=== PATIENT | male | born 1930 | race Caucasian/White ===

== ENCOUNTER 2018-05-02 16:23 | Emergency (ER) | payer MEDICARE ==
[~2018-05-02] VITALS: Ht 162.6 cm; Wt 61.2 kg
--- NOTE | 2018-05-02 16:41 | ED Neurological Problem ---
General Stated Complaint: POSSIBLE STROKE;SLURRED WORDS Source: patient, family (grandson caregiver) Exam Limitations: no limitations History of Present Illness Date Seen by Provider: May 02, 2018 Time Seen by Provider: 16:27 Initial Comments The patient presents to ER by private conveyance with his grandson who is his caregiver with last known well time of 1600 and his grandson suspecting that he was having a stroke. He said right around 4:00 the patient started just staring at him very finally and would not respond for some time but then when he did speak it was rather slurred but he couldn't make out what he was saying. He thought maybe the right side of his face was a little bit drooped. He did not note any weakness in one side or the other of his lower extremities or arms but he said that the patient could no longer stance area to pick him up and carry him out. He got a skin tear on his left elbow as the grandson was carrying him out. The grandson moved here recently 2 months ago with the patient to take care of him. The patient does have dementia at baseline. Grandson is not sure of his medical diagnoses are medicines but is going to retrieve them and bring them appear. He said as he was driving up. The patient stated that he did not want to go to the hospital. 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 He denies any recent illness, fevers, chills, cough, dysuria, diarrhea or constipation. Patient has not had any falls recently and usually gets around using a walker independently. He says he is usually rather verbose and can make his own wishes known. The patient is on aspirin and has a history of prostatism and hypertension. After discovering the hematoma we discussed recent falls the patient says he has fallen multiple times but is not still a very good historian although is much better now about talking. The grandson rumors that he had a fall rolled out of bed and got a black eye on the right eye that still has some residual bruising about for 5 weeks ago and then also had a fall about 2-3 weeks ago landing on his left hip which causes a large bruise but has since resolved. He also noticed today a new abrasion on the patient's left knee that would indicate a new fall but it was unwitnessed and the grandson is not sure when showed up but it looks fresh. Allergies and Home Medications Allergies Coded Allergies: No Allergy Information Available (Unverified , 05/02/18) Nonverbal and grandson caregiver does not know. Home Medications Amlodipine Besylate 5 Mg Tablet, 5 MG PO DAILY, (Reported) Lisinopril 10 Mg Tablet, 10 MG PO DAILY, (Reported) Patient Home Medication List Home Medication List Reviewed: Yes Review of Systems Review of Systems Constitutional: No chills, No fever, No malaise Eyes: Denies Blindness, Denies Drainage Ears, Nose, Mouth, Throat: denies ear pain, denies nose pain Respiratory: No cough, No phlegm Cardiovascular: No chest pain, No edema Gastrointestinal: No abdominal pain, No constipation, No diarrhea Genitourinary: No discharge, No dysuria Musculoskeletal: No joint pain, No joint swelling Skin: see HPI; No dryness Past Sugpkae-Rukkib-Qkghvs Hx Patient Social History Alcohol Use: Denies Use Recreational Drug Use: No Smoking Status: Never a Smoker Recent Foreign Travel: No Contact w/Someone Who Travel: No Physical Exam Vital Signs Vital Signs - First Documented 05/02/18 16:30 Temp 99.0 Pulse 80 Resp 17 B/P (MAP) 126/60 (82) Pulse Ox 97 Capillary Refill : Height, Weight, BMI Height: '" Weight: lbs. oz. kg; BMI Method: General Appearance: no apparent distress, thin HEENT: PERRL/EOMI, normal ENT inspection, TMs normal, pharynx normal Neck: non-tender, full range of motion, supple, normal inspection Respiratory: chest non-tender, lungs clear, normal breath sounds, no respiratory distress, no accessory muscle use Cardiovascular: regular rate, rhythm, no edema, no murmur Peripheral Pulses: 2+ Dorsalis Pedis (R), 2+ Left Dors-Pedis (L), 2+ Radial Pulses (R), 2+ Radial Pulses (L) Gastrointestinal: normal bowel sounds (active), non tender, soft Extremities: non-tender, normal inspection, no pedal edema, no calf tenderness , normal capillary refill Neurologic/Psychiatric: alert, other (flat affect. Answers sparingly and for the nurse had some slurred speech but gives a few words answers at the time and they are clear to this provider.) Crainal Nerves: normal hearing, PERRL; No abnormal eye position; abnormal speech (slowed anita); No facial asymmetry, No facial droop, No facial paresthesias, No facial weakness, No gaze palsy Coordination/Gait: No normal finger to nose, No normal gait Motor/Sensory: no sensory deficit Skin: normal color, warm/dry, ecchymosis (various), other (2.5 cm superficial skin tear over the left lateral elbow) Stroke Onset of Symptoms Date of Onset of Symptoms: May 02, 2018 Time of Symptom Onset: 16:00 Onset of Symptoms: Yes Symptoms onset unknown: No NIH Stroke Scale Assessment Select: Initial Level of Consciousness: 0=Alert (0), Level of Consciousness- Questions: 0=Answers both month/age (0), LOC Commands: 0=Performs both tasks (0) , Gaze: Normal (0), Visual Rodríguez: 0=No visual loss (0), Facial Movement ( Facial Paresis): 0=Normal symmetrical mnt (0), Motor Function-Arms Right: 1= Drift (1), Motor Function-Arms Left: 2=Some effort/gravity (2), Motor Function- Legs Right: 0=No drift (0), Motor Function-Legs Left: 2=Some effort/gravity (2) , Limb Ataxia: 2=Present in two limbs (2), Sensory: 0=Normal:no loss (0), Best Language: 1=Mild to moderat aphasia (1), Dysarthria: 1=Mild to moderate loss (1) , Extinction & Inattention: 0=No abnormality (0), Total: 9 Stroke Thrombolytic Exclusion Age 18 or Over: Yes Acute intenal hemorrhage: No History of CVA: No Uncontrolled Coagulation Defec: No Intracranial Hemorrhage: No Severe Hypertension: No GI or Bleed: No Subarachnoid Hemorrhage: No Intracranial Neoplasm/Aneurysm: No Surgery or Trauma: No Puncture of Non-Compressible V: No Recent CPR: No Diabetic Hemorrhagic Retinopat: No Organ Biopsy: No Recent Obstetric Delivery: No Glucose: No (110) Significant Hepatic Dysfunctio: No NIH Stoke Scale >22: No Bacterial Endocarditis: No Pericarditis: No Improving Symptoms: Yes Platelets: No (264) TPA Contraindication: Yes IV - TPa Received IV - TPa Procedure Performed?: No Progress/Results/Core Measures Results/Orders Lab Results Laboratory Tests Test 05/02/18 16:39 05/02/18 16:51 05/02/18 17:25 Range/Units Glucometer 110 70-110 MG/DL White Blood Count 6.1 4.3-11.0 10^3/uL Red Blood Count 4.00 L 4.35-5.85 10^6/uL Hemoglobin 12.4 L 13.3-17.7 G/DL Hematocrit 36 L 40-54 % Mean Corpuscular Volume 91 80-99 FL Mean Corpuscular Hemoglobin 31 25-34 PG Mean Corpuscular Hemoglobin Concent 34 32-36 G/DL Red Cell Distribution Width 13.2 10.0-14.5 % Platelet Count 264 130-400 10^3/uL Mean Platelet Volume 8.9 7.4-10.4 FL Neutrophils (%) (Auto) 57 42-75 % Lymphocytes (%) (Auto) 29 12-44 % Monocytes (%) (Auto) 11 0-12 % Eosinophils (%) (Auto) 2 0-10 % Basophils (%) (Auto) 1 0-10 % Neutrophils # (Auto) 3.4 1.8-7.8 X 10^3 Lymphocytes # (Auto) 1.7 1.0-4.0 X 10^3 Monocytes # (Auto) 0.7 0.0-1.0 X 10^3 Eosinophils # (Auto) 0.1 0.0-0.3 10^3/uL Basophils # (Auto) 0.0 0.0-0.1 10^3/uL Prothrombin Time 13.6 12.2-14.7 SEC INR Comment 1.0 0.8-1.4 Activated Partial Thromboplast Time 31 24-35 SEC D-Dimer 1.07 H 0.00-0.49 UG/ML Sodium Level 138 135-145 MMOL/L Potassium Level 4.3 3.6-5.0 MMOL/L Chloride Level 100 98-107 MMOL/L Carbon Dioxide Level 23 21-32 MMOL/L Anion Gap 15 H 5-14 MMOL/L Blood Urea Nitrogen 21 H 7-18 MG/DL Creatinine 1.05 0.60-1.30 MG/DL Estimat Glomerular Filtration Rate > 60 BUN/Creatinine Ratio 20 Glucose Level 114 H 70-105 MG/DL Calcium Level 8.8 8.5-10.1 MG/DL Corrected Calcium 9.4 8.5-10.1 MG/DL Total Bilirubin 0.5 0.1-1.0 MG/DL Aspartate Amino Transf (AST/SGOT) 16 5-34 U/L Alanine Aminotransferase (ALT/SGPT) 15 0-55 U/L Alkaline Phosphatase 89 40-136 U/L Total Protein 6.2 L 6.4-8.2 GM/DL Albumin 3.3 3.2-4.5 GM/DL Urine Color YELLOW Urine Clarity CLEAR Urine pH 6.0 5-9 Urine Specific [place] 1.015 L 1.016-1.022 Urine Protein NEGATIVE NEGATIVE Urine Glucose (UA) NEGATIVE NEGATIVE Urine Ketones TRACE H NEGATIVE Urine Nitrite NEGATIVE NEGATIVE Urine Bilirubin NEGATIVE NEGATIVE Urine Urobilinogen 1.0 NORMAL MG/DL Urine Leukocyte Esterase NEGATIVE NEGATIVE Urine RBC (Auto) TRACE H NEGATIVE Urine RBC 2-5 H /HPF Urine WBC 0-2 /HPF Urine Squamous Epithelial Cells 0-2 /HPF Urine Crystals NONE /LPF Urine Bacteria TRACE /HPF Urine Casts PRESENT /LPF Urine Hyaline Casts 0-2 H /LPF Urine Mucus SMALL H /LPF Urine Culture Indicated NO My Orders Orders - DREW ALMEIDA Code/Resuscitation (05/02/18 16:38) Cbc With Automated Diff (05/02/18 16:38) Protime With Inr (05/02/18 16:38) Partial Thromboplastin Time (05/02/18 16:38) Comprehensive Metabolic Panel (05/02/18 16:38) Fibrin Degradation Products (05/02/18 16:38) Ua Culture If Indicated (05/02/18 16:38) Chest 1 View Ap/Pa Only (05/02/18 16:38) Catheter(Urinary) Insert & Ass 03,15 (05/02/18 16:38) Ekg Tracing (05/02/18 16:38) Nothing By Mouth (05/03/18 Breakfast) Accucheck Stat ONCE (05/02/18 16:38) Saline Lock/Iv-Start (05/02/18 16:38) Saline Lock/Iv-Start (05/02/18 16:38) Vital Signs Stroke Patient Q15M (05/02/18 16:38) Ct Head Wo-R/O Stroke (05/02/18 16:38) O2 (05/02/18 16:38) Intake & Output 06,14,22 (05/02/18 16:38) Monitor-Rhythm Ecg Trace Only (05/02/18 16:38) Dysphagia Screening Tool (05/02/18 16:38) Post Thrombolytic Adminstratio (05/02/18 16:38) Lipid Panel (05/03/18 06:00) Vital Signs/I&O 05/02/18 16:30 Temp 99.0 Pulse 80 Resp 17 B/P (MAP) 126/60 (82) Pulse Ox 97 Progress Progress Note #1: Time: 17:00 Progress Note The grandson reports that the symptoms were worse in the beginning and are getting better. When he first came in the patient would not talk to us now but now he is talking since the grandson left. Progress Note #2: Time: 18:15 Progress Note The patient is on multiple falls and would possibly account for this subacute subdural hematoma. I suspect now it's more likely that the subdural hematoma may have contributed to a seizure and a postictal period is what we were witnessing with his improving symptoms. Obviously he is not a candidate for TPA. We discuss with neurosurgery. Initial ECG Impression Date: May 02, 2018 Initial ECG Impression Time: 16:43 Initial ECG Rate: 84 Initial ECG Rhythm: Normal Sinus Initial ECG Intervals: Normal Initial ECG Impression: Normal, Nonspecific Changes Initial ECG Comparisson: No Previous ECG Available Comment There is some mild artifact but there is no apparent ST elevation or depression. Diagnostic Imaging Diagonstic Imaging: Xray Plain Films/CT/US/NM/MRI: chest (1v) Comments NAME: RACHEL HUSTON [facility] REC#: [id number] PT STATUS: REG ER : 1930 PHYSICIAN: DREW ALMEIDA MD ADMIT DATE: 05/02/18/ER FS Signed Date of Exam:05/02/18 CHEST 1 VIEW AP/PA ONLY Indication: CVA Portable chest 4:47 PM Heart size and pulmonary vascularity are normal. Lungs are clear. There are no effusions or pneumothoraces. Impression: No acute abnormalities in the chest Dictated by: Dictated on workstation # [id number] Dict: 05/02/181709 Trans: 05/02/18 171 [id number] Interpreted by: CIRO RODRIGUEZ MD Electronically signed by: CIRO RODRIGUEZ MD 05/02/181710 Reviewed: Reviewed by Me Diagonstic Imaging: CT (noncontrast) Plain Films/CT/US/NM/MRI: head Comments NAME: RACHEL HUSTON [facility] REC#: [id number] PT STATUS: REG ER : 1930 PHYSICIAN: DREW ALMEIDA MD ADMIT DATE: 05/02/18/ER FS Draft Date of Exam:05/02/18 CT HEAD WO-R/O STROKE PROCEDURE: CT head wo r/o stroke. TECHNIQUE: Multiple contiguous axial images were obtained through the brain without the use of intravenous contrast. Auto exposure controls were utilized during the CT exam to meet ALARA standards for radiation dose reduction. INDICATION: Altered mental status. FINDINGS: There is a mixed density left subdural hematoma measuring up to 8 mm in thickness. There is 4 mm of midline shift to the right. 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 There are no masses. IMPRESSION: Mixed density left subdural hematoma. This would indicate this is subacute. There is minimal midline shift. CRITICAL FINDING Report was called to nurse Mata (for Dr. Drew Almeida) in the [place] ER at 5:43 p.m., by [place] (for TNANER). Dictated on workstation # [id number] Dict: 05/02/181712 Trans: 05/02/18 174 [place] [id number] Interpreted by: CIRO RODRIGUEZ MD Electronically signed by: Reviewed: Reviewed by Me Consults : Consults Notes [facility] neurosurgeon: 1825: It subacute, nonsurgical and they would be willing to observe the patient. They think is appropriate for him to spend the night in the neuro ICU and possibly do EEG monitoring. Departure Impression Primary Impression: Encephalopathy acute Additional Impressions: Subacute subdural hematoma History of fall Disposition: [facility] HOSP Condition: Stable Transfer Time Spoke to Accepting Phy: 18:[address] Colvin; neuro assistant professor of psychology agrees to accept the patient to the neuro ICU at [facility] Transfer Facility: [place], [place] Method of Transfer: EMS Departure-Patient Inst. Referrals: NO,LOCAL PHYSICIAN (PCP) Primary Care Physician DREW ALMEIDA May 02, 2018 16:41
[2018-05-02 17:00] LABS: HEMATOCRIT 36 % (40-54); HEMOGLOBIN 12.4 G/DL (13.3-17.7); MEAN CORPUSCULAR HEMOGLOBIN 31 PG (25-34); MEAN CORPUSCULAR HGB CONC 34 G/DL (32-36); MEAN CORPUSCULAR VOLUME 91 FL (80-99); MEAN PLATELET VOLUME 8.9 FL (7.4-10.4); PLATELET COUNT 264 10^3/uL (130-400); RED CELL DISTRIBUTION WIDTH 13.2 % (10.0-14.5); WHITE BLOOD COUNT 6.1 10^3/uL (4.3-11.0)
[2018-05-02 17:01] LABS: BASOPHILS % (AUTO) 1 % (0-10); EOSINOPHILS # (AUTO) 0.1 10^3/uL (0.0-0.3); EOSINOPHILS % (AUTO) 2 % (0-10); LYMPHOCYTES # (AUTO) 1.7 X 10^3 (1.0-4.0); LYMPHOCYTES % (AUTO) 29 % (12-44); MONOCYTES # (AUTO) 0.7 X 10^3 (0.0-1.0); MONOCYTES % (AUTO) 11 % (0-12); NEUTROPHILS # (AUTO) 3.4 X 10^3 (1.8-7.8); NEUTROPHILS % (AUTO) 57 % (42-75)
[2018-05-02] MEDS ORDERED: POLY17PO6 PO (17:11)
[2018-05-02] MEDS ORDERED: LISI10TA2 PO (17:11)
[2018-05-02] MEDS ORDERED: TAMS0.4C98 PO (17:11)
[2018-05-02] MEDS ORDERED: NAPR220C11 PO (17:11)
[2018-05-02] MEDS ORDERED: ASPI-808 PO (17:11)
[2018-05-02] MEDS ORDERED: OMEP20CA12 PO (17:11)
[2018-05-02] MEDS ORDERED: ACET325C5 PO (17:11)
[2018-05-02] MEDS ORDERED: DUTA0.5C16 PO (17:11)
[2018-05-02] MEDS ORDERED: IBUP100T3 PO (17:11)
[2018-05-02] MEDS ORDERED: AMLO5TAB9 PO (17:11)
--- NOTE | 2018-05-02 17:13 | Diagnostic Imaging Report ---
Indication: CVA Portable chest 4:47 PM Heart size and pulmonary vascularity are normal. Lungs are clear. There are no effusions or pneumothoraces. Impression: No acute abnormalities in the chest Dictated by: Dictated on workstation # [id number]
[2018-05-02 17:23] LABS: FIBRIN DEGRADATION PRODUCTS 1.07 UG/ML (0.00-0.49); PROTHROMBIN TIME PATIENT 13.6 SEC (12.2-14.7)
[2018-05-02 17:24] LABS: ALANINE AMINOTRANSFERASE 15 U/L (0-55); ALBUMIN 3.3 GM/DL (3.2-4.5); ALKALINE PHOSPHATASE 89 U/L (40-136); BILIRUBIN,TOTAL 0.5 MG/DL (0.1-1.0); BUN/CREATININE RATIO 20; CALCIUM 8.8 MG/DL (8.5-10.1); CARBON DIOXIDE 23 MMOL/L (21-32); CHLORIDE 100 MMOL/L (98-107); CREATININE SERUM 1.05 MG/DL (0.60-1.30); GFR ESTIMATED > 60; GLUCOSE 114 MG/DL (70-105); POTASSIUM 4.3 MMOL/L (3.6-5.0); SODIUM 138 MMOL/L (135-145); TOTAL PROTEIN 6.2 GM/DL (6.4-8.2)
[2018-05-02] MEDS ORDERED: RISP0.253 PO (17:32)
[2018-05-02 17:37] LABS: CLARITY,URINE CLEAR; COLOR,URINE YELLOW; GLUCOSE, URINE (UA) NEGATIVE (NEGATIVE); PROTEIN,URINE NEGATIVE (NEGATIVE)
[2018-05-02 17:38] LABS: BACTERIA,URINE TRACE /HPF; BILIRUBIN,URINE NEGATIVE (NEGATIVE); HYALINE CASTS, URINE 0-2 /LPF; KETONES,URINE TRACE (NEGATIVE); LEUKOCYTE ESTERASE ,URINE NEGATIVE (NEGATIVE); NITRITE,URINE NEGATIVE (NEGATIVE); SQUAMOUS EPITHELIAL CELL,UR 0-2 /HPF; WBC,URINE 0-2 /HPF
--- NOTE | 2018-05-02 17:44 | Diagnostic Imaging Report ---
PROCEDURE: CT head wo r/o stroke. TECHNIQUE: Multiple contiguous axial images were obtained through the brain without the use of intravenous contrast. Auto exposure controls were utilized during the CT exam to meet ALARA standards for radiation dose reduction. INDICATION: Altered mental status. FINDINGS: There is a mixed density left subdural hematoma measuring up to 8 mm in thickness. There is 4 mm of midline shift to the right. 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 There are no masses. IMPRESSION: Mixed density left subdural hematoma. This would indicate this is subacute. There is minimal midline shift. CRITICAL FINDING Report was called to nurse Mata (for Dr. Drew Almeida) in the [place] ER at 5:43 p.m., by sarahi (for TANNER). Dictated by: Dictated on workstation # [id number]
[2018-05-02 20:05] VITALS: BP 126/78
== END 2018-05-02 20:05 | disposition short-term general hospital (02) ==
LOC: ER FS 16:25
DX: G93.40 Encephalopathy, unspecified (principal); I62.01 Nontraumatic acute subdural hemorrhage; Z91.81 History of falling
CPT/HCPCS: 36415; 70450; 71045; 80053; 81000; 82962; 85025; 85379; 85610; 85730; 93005; 93041

== ENCOUNTER 2018-05-06 23:09 | Emergency (ER) | payer MEDICARE ==
[~2018-05-06] VITALS: Ht 170.2 cm; Wt 49.9 kg
[~2018-05-06 23:09] MED LIST: ACET325C5 PO; AMLO5TAB9 PO; ASPI-808 PO; DUTA0.5C16 PO; IBUP100T3 PO; LISI10TA2 PO; NAPR220C11 PO; OMEP20CA12 PO; POLY17PO6 PO; RISP0.253 PO; TAMS0.4C98 PO
[2018-05-06] MEDS ORDERED: NS IV 1000 ML 1,000 ML ONE (23:22)
[2018-05-06] MEDS ORDERED: NS IV 1000 ML 1,000 ML IV SCH (23:30)
--- NOTE | 2018-05-06 23:33 | ED General ---
General Chief Complaint: Altered Mental Status Stated Complaint: LOW BP Source of Information: Caregiver Exam Limitations: Other (pt is unresponsive) History of Present Illness Date Seen by Provider: May 06, 2018 Time Seen by Provider: 23:08 Initial Comments 87-year-old male presenting with family. He was just discharged from [facility] with a subdural hematoma. According to the family he has had decreased mental status since arriving home. However, he has not been responding to them this evening at all. He has not said his name and is not eating or drinking this evening. When family went to check his vital signs his blood pressure was 70 systolic and they called the nurse line at and were told to bring him into the emergency department. The family states that he has a DO NOT RESUSCITATE order and does not wish to be resuscitated. He was showing improvement and that was why he was able to be discharged to home from however he has clinically worsened in the last 12-24 hours. Family denies having any nausea or vomiting for him. He has eaten a little bit of lunch today. He did say his name for family this evening but he has not been responding since then. Family was trying to arrange for Hospice for him at home but they have not chosen a service for him yet and this was not finalized prior to leaving . Recently started on seizure medicine but has not taken it today due to poor responsiveness and not taking fluids or food by mouth. Allergies and Home Medications Allergies Coded Allergies: No Allergy Information Available (Unverified , 05/06/18) Nonverbal and grandson caregiver does not know. Home Medications Amlodipine Besylate 5 Mg Tablet, 5 MG PO DAILY, (Reported) Lisinopril 10 Mg Tablet, 10 MG PO DAILY, (Reported) Patient Home Medication List Home Medication List Reviewed: Yes Review of Systems Review of Systems Constitutional: see HPI, malaise, weakness EENTM: no symptoms reported Respiratory: cough (occasional); No hemoptysis, No short of breath, No stridor , No wheezing Cardiovascular: no symptoms reported Gastrointestinal: No diarrhea; loss of appetite (not wanting to eat or drink today); No nausea, No vomiting Genitourinary: decreased output; No hematuria Musculoskeletal: no symptoms reported Skin: other (skin tear to left elbow that has dressing over it) Psychiatric/Neurological: See HPI Hematologic/Lymphatic: Easy Bleeding, Easy Bruising Past Kqnevvd-Kooads-Tozeyd Hx Past Med/Social Hx: Reviewed Nursing Past Med/Soc Hx Patient Social History Recent Foreign Travel: No Contact w/Someone Who Travel: No Past Medical History Hypertension Dementia, 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 oz. 61.739041zs; BMI Method:Estimated General Appearance: Chronically ill, Cachetic, Thin HEENT: Other (patient is drooling and not following commands. He has 2 mm pupils and they do not seem to be reacting to light) Neck: Non Tender Respiratory: Chest Non Tender, No Respiratory Distress, Decreased Breath Sounds Cardiovascular: Regular Rate, Rhythm, No Edema, Systolic Murmur (2/6 ) Gastrointestinal: No Pulsatile Mass, Non Tender, Soft, Abnormal Bowel Sounds ( hypoactive); No Distended, No Guarding Rectal: Deferred Back: Other (pt is kyphotic ) Extremity: Non Tender, Slow Capillary Refill Neurologic/Psychiatric: Aphasia, Other (pt is unresponsive and not following commands) Skin: Cool, Erythema (stage 1 decub ulcer with erythema to sacrum and coccygeal area), Pallor, Other (skin tear under a Tegaderm dressing on left elbow) Focused Exam Sepsis Stage: Sepsis Reason for ruling out sepsis: He is dehydrated with elevated Cr from comparison to 05/02 Lactate Level 05/06/18 01:15: Lactic Acid Level 3.09*H 05/06/18 23:18: Lactic Acid Level 3.16*H Time of Focused Exam: 00:45 Respiratory: Chest Non Tender, Lungs Clear, Normal Breath Sounds, No Accessory Muscle Use, No Respiratory Distress Cardiovascular: Regular Rate, Rhythm, No Edema, Normal Peripheral Pulses Capillary Refill: Less Than 3 Seconds Skin: normal color, warm/dry Lactic Acid Level Within 3hrs of presentation: Admin fluids, Admin 30ml/kg IBW due to BMI>30, Focus exam, Lactate level Progress/Results/Core Measures Suspected Sepsis Recent Fever Within 48 Hours: No New/Unexplained Altered Menta: Yes Within 3hrs of presentation: Admin fluids, Admin 30ml/kg IBW due to BMI>30, Blood cultures prior to ABX's, Focus exam, Lactate level SIRS Temperature: Pulse: Respiratory Rate: Laboratory Tests 05/06/18 23:18: White Blood Count 11.5H Blood Pressure / Mean: 05/06/18 01:15: Lactic Acid Level 3.09*H 05/06/18 23:18: Lactic Acid Level 3.16*H Laboratory Tests 05/06/18 23:18: Creatinine 1.77H, INR Comment 1.0, Platelet Count 323, Total Bilirubin 0.3 Results/Orders Lab Results Laboratory Tests Test 05/06/18 01:15 05/06/18 23:18 05/06/18 23:59 Range/Units Lactic Acid Level 3.09 *H 3.16 *H 0.50-2.00 MMOL/L White Blood Count 11.5 H 4.3-11.0 10^3/uL Red Blood Count 4.51 4.35-5.85 10^6/uL Hemoglobin 13.7 13.3-17.7 G/DL Hematocrit 42 40-54 % Mean Corpuscular Volume 93 80-99 FL Mean Corpuscular Hemoglobin 30 25-34 PG Mean Corpuscular Hemoglobin Concent 33 32-36 G/DL Red Cell Distribution Width 13.4 10.0-14.5 % Platelet Count 323 130-400 10^3/uL Mean Platelet Volume 9.6 7.4-10.4 FL Neutrophils (%) (Auto) 76 H 42-75 % Lymphocytes (%) (Auto) 15 12-44 % Monocytes (%) (Auto) 8 0-12 % Eosinophils (%) (Auto) 0 0-10 % Basophils (%) (Auto) 0 0-10 % Neutrophils # (Auto) 8.7 H 1.8-7.8 X 10^3 Lymphocytes # (Auto) 1.7 1.0-4.0 X 10^3 Monocytes # (Auto) 0.9 0.0-1.0 X 10^3 Eosinophils # (Auto) 0.0 0.0-0.3 10^3/uL Basophils # (Auto) 0.0 0.0-0.1 10^3/uL Prothrombin Time 13.2 12.2-14.7 SEC INR Comment 1.0 0.8-1.4 Activated Partial Thromboplast Time 28 24-35 SEC Sodium Level 139 135-145 MMOL/L Potassium Level 5.5 H 3.6-5.0 MMOL/L Chloride Level 98 98-107 MMOL/L Carbon Dioxide Level 25 21-32 MMOL/L Anion Gap 16 H 5-14 MMOL/L Blood Urea Nitrogen 21 H 7-18 MG/DL Creatinine 1.77 H 0.60-1.30 MG/DL Estimat Glomerular Filtration Rate 36 BUN/Creatinine Ratio 12 Glucose Level 174 H 70-105 MG/DL Calcium Level 9.1 8.5-10.1 MG/DL Corrected Calcium 9.4 8.5-10.1 MG/DL Total Bilirubin 0.3 0.1-1.0 MG/DL Aspartate Amino Transf (AST/SGOT) 13 5-34 U/L Alanine Aminotransferase (ALT/SGPT) 11 0-55 U/L Alkaline Phosphatase 97 40-136 U/L Total Protein 6.9 6.4-8.2 GM/DL Albumin 3.6 3.2-4.5 GM/DL Urine Color YELLOW Urine Clarity CLOUDY Urine pH 8.0 5-9 Urine Specific [place] 1.010 L 1.016-1.022 Urine Protein NEGATIVE NEGATIVE Urine Glucose (UA) NEGATIVE NEGATIVE Urine Ketones NEGATIVE NEGATIVE Urine Nitrite NEGATIVE NEGATIVE Urine Bilirubin NEGATIVE NEGATIVE Urine Urobilinogen 0.2 NORMAL MG/DL Urine Leukocyte Esterase NEGATIVE NEGATIVE Urine RBC (Auto) NEGATIVE NEGATIVE Urine RBC 0-2 /HPF Urine WBC 0-2 /HPF Urine Squamous Epithelial Cells 0-2 /HPF Urine Crystals NONE /LPF Urine Amorphous Sediment FEW ALDA PHOSPHATE H /LPF Urine Bacteria NEGATIVE /HPF Urine Casts NONE /LPF Urine Mucus NEGATIVE /LPF Urine Culture Indicated NO My Orders Orders - SCARLETT JULES MD Ns Iv 1000 Ml (Sodium Chloride 0.9%) (05/06/18 23:30) Ns Iv 1000 Ml (Sodium Chloride 0.9%) (05/06/18 23:22) Cbc With Automated Diff (05/06/18 23:23) Chest 1 View Ap/Pa Only (05/06/18 23:23) Ekg Tracing (05/06/18 23:23) Comprehensive Metabolic Panel (05/06/18 23:23) Protime With Inr (05/06/18 23:23) Partial Thromboplastin Time (05/06/18 23:23) O2 (05/06/18 23:23) Monitor-Rhythm Ecg Trace Only (05/06/18 23:23) Saline Lock/Iv-Start (05/06/18 23:23) Ct Head Wo (05/06/18 23:23) Blood Culture (05/06/18 23:23) Lactic Acid Analyzer (05/06/18 23:23) Ua Culture If Indicated (05/06/18 23:59) Straight Cath For Spec.-Adult (05/06/18 23:59) Ns Iv 1000 Ml (Sodium Chloride 0.9%) (05/07/18 00:02) Ns Iv 1000 Ml (Sodium Chloride 0.9%) (05/07/18 01:00) Vital Signs/I&O 05/06/18 05/06/18 05/06/18 05/07/18 23:15 23:38 23:42 00:45 Temp 97.4 97.4 Pulse 95 76 77 Resp 28 28 20 B/P (MAP) 63/37 63/37 (46) 127/63 (84) Pulse Ox 88 95 88 77 O2 Delivery Room Air Room Air Non Rebreather Non Rebreather O2 Flow Rate 10.00 05/07/18 05/07/18 02:11 02:25 Pulse 61 63 Resp 18 18 B/P (MAP) 104/46 (65) 101/48 (65) Pulse Ox 100 100 O2 Delivery Non Rebreather Non Rebreather O2 Flow Rate 100.00 Capillary Refill : Progress Note #1: Time: 23:25 Progress Note Will check labs and CT scan of his head. With his recent subdural hematoma he may have had increase in this so will see what a new scan tonight shows. for his blood pressure will try IVF bolus of 1 L NS and see how he responds. family reports that he is a DNR and do not want him resuscitated. However, due to his low blood pressure and decreased mental status a blood culture and lactic acid was initially drawn. Progress Note #2: Time: 23:55 Progress Note labs are showing that the patient is dehydrated and his lactic acid came back at 3.16. His blood pressure is responding to the IVF resuscitation and he had improved blood pressure and was slightly more active in the bed but still was not speaking. He had elevated Cr up to 1.77 from 1.04 on 20 March when he was last seen. He has not signs of UTI on his urinalysis obtained by straight cath. Progress Note #3: Time: 00:15 Progress Note Diego called and pt has an increase in size of his subdural h ematoma from 0.8 mm on 02 May to 1.8 mm tonight. he still only has 3-4 mm of left to right midline shift. 0027 Page placed to [facility] to discuss results and review plan and possible transfer since he continues to have decreased responsiveness and hypotension. Progress Note #4: Time: 00:56 Progress Note Selam from transfer center called back and wanted to clarify some information about the patient and expectations of the family for the patient for [facility] Dr. Bates about the patient. The family does not want surgery done for the subdural hematoma and was wanting to get him on palliative or Hospice type care. They would be interested in a transfer still to to arrange this. I did offer a transfer to [facility] as it was a closer facility if they were wanting just to give him comfort care measures and arrange for a Hospice group to help care for him at home rather than having to go all the way back to . The family and his daughter that is his DPOA refused and wanted to still go to and stated if he could not be accepted to they would want him to go to [facility] where his primary doctor worked. 0139 Repeat Lactic Acid came back at 3.09. With pt being transferred to be placed on hospice care and family not wanting aggressive measures will not proceed with any further measures for possible sepsis as this would involve multiple IV antibiotics, Vasopressors, Central Line, ICU Monitoring, possible intubation, ICU admit. All of these measures are things the family did not want to pursue and would be against the wishes of what the patient was wanting done so will continue with IVF and plan to have him get transferred for Palliative care and Hospice care. If he does survive to be discharged to home then he could be established with home hospice services to continue end of life care at home. However, based on his frail appearance and rapid decline in health I do not believe that he would survive for much longer, but it is hard to say for sure. 0143 Selam called back and had Dr. Muniz from medicine service as accepting provider, with the understanding that he is coming for comfort measures only and Palliative care consult. They also wanted it stressed again to the family that he may not survive the transport to [facility] and the he will remain a DNR pt and may not survive to be discharged to home. I did update the patient's family. 0155 Selam called back with his room number [id number], report was called and ambulance was toned out for transfer. At time of transfer his blood pressure had improved but he still was not speaking ECG Initial ECG Impression Date: May 06, 2018 Initial ECG Impression Time: 23:29 Initial ECG Rate: 78 Initial ECG Rhythm: Normal Sinus Initial ECG Intervals short MS interval of 94 ms. QT interval of 394 ms and QTc interval of [address] elevation. Diagnostic Imaging Diagonstic Imaging: Xray Plain Films/CT/US/NM/MRI: chest Comments On my review of his 1 view CXR he has no definite infiltrate or effusion. Reviewed: Reviewed by Me Diagonstic Imaging: CT Plain Films/CT/US/NM/MRI: head Departure Impression Primary Impression: Mental status, decreased Additional Impressions: Hypotension Qualified Codes: I95.9 - Hypotension, unspecified Dehydration Subacute subdural hematoma Disposition: 02 XFER SHT-TRM HOSP Condition: Critical Transfer Time Spoke to Accepting Phy: 01:43 Transfer Progress Notes 0143 Sonya from [facility] transfer center called back and Dr. Muniz is the accepting physician to come to . Pt will be accepted under the condition that he is coming for comfort measures only and make it clear to the family that he may not survive the ambulance ride to another facility. Transfer Facility: [facility] Method of Transfer: EMS Departure-Patient Inst. Referrals: NO,LOCAL PHYSICIAN (PCP/Family) Primary Care Physician SCARLETT JULES MD May 06, 2018 23:33
[2018-05-06 23:36] LABS: HEMATOCRIT 42 % (40-54); HEMOGLOBIN 13.7 G/DL (13.3-17.7); MEAN CORPUSCULAR HEMOGLOBIN 30 PG (25-34); MEAN CORPUSCULAR VOLUME 93 FL (80-99); WHITE BLOOD COUNT 11.5 10^3/uL (4.3-11.0)
[2018-05-06 23:37] LABS: BASOPHILS % (AUTO) 0 % (0-10); EOSINOPHILS % (AUTO) 0 % (0-10); LYMPHOCYTES # (AUTO) 1.7 X 10^3 (1.0-4.0); LYMPHOCYTES % (AUTO) 15 % (12-44); MEAN CORPUSCULAR HGB CONC 33 G/DL (32-36); MEAN PLATELET VOLUME 9.6 FL (7.4-10.4); MONOCYTES # (AUTO) 0.9 X 10^3 (0.0-1.0); MONOCYTES % (AUTO) 8 % (0-12); NEUTROPHILS # (AUTO) 8.7 X 10^3 (1.8-7.8); NEUTROPHILS % (AUTO) 76 % (42-75); PLATELET COUNT 323 10^3/uL (130-400); RED CELL DISTRIBUTION WIDTH 13.4 % (10.0-14.5)
[2018-05-06 23:47] LABS: PROTHROMBIN TIME PATIENT 13.2 SEC (12.2-14.7)
[2018-05-06 23:50] LABS: ALBUMIN 3.6 GM/DL (3.2-4.5); BILIRUBIN,TOTAL 0.3 MG/DL (0.1-1.0); CALCIUM 9.1 MG/DL (8.5-10.1); CREATININE SERUM 1.77 MG/DL (0.60-1.30); POTASSIUM 5.5 MMOL/L (3.6-5.0); TOTAL PROTEIN 6.9 GM/DL (6.4-8.2)
[2018-05-07] MEDS ORDERED: NS IV 1000 ML 1,000 ML IV STA (00:02)
[2018-05-07 00:26] LABS: CLARITY,URINE CLOUDY; COLOR,URINE YELLOW
[2018-05-07 00:27] LABS: BACTERIA,URINE NEGATIVE /HPF; BILIRUBIN,URINE NEGATIVE (NEGATIVE); GLUCOSE, URINE (UA) NEGATIVE (NEGATIVE); KETONES,URINE NEGATIVE (NEGATIVE); LEUKOCYTE ESTERASE ,URINE NEGATIVE (NEGATIVE); NITRITE,URINE NEGATIVE (NEGATIVE); PROTEIN,URINE NEGATIVE (NEGATIVE); RBC,URINE 0-2 /HPF; SQUAMOUS EPITHELIAL CELL,UR 0-2 /HPF; UROBILINOGEN,URINE 0.2 MG/DL (NORMAL); WBC,URINE 0-2 /HPF
[2018-05-07 00:28] LABS: AMORPHOUS SEDIMENT,UR FEW AMOR PHOSPHATE /LPF
[2018-05-07 00:45] VITALS: BP 127/63
--- NOTE | 2018-05-07 00:45 | NUR ---
pt more awake, some spontaneous movement noted with eye opening
[2018-05-07] MEDS ORDERED: NS IV 1000 ML 1,000 ML IV SCH (01:00)
--- NOTE | 2018-05-07 01:39 | NUR ---
latic acid was 3.09 doctor Enyart aware.
[2018-05-07 02:11] VITALS: BP 104/46
[2018-05-07 02:25] VITALS: BP 101/48
--- NOTE | 2018-05-07 07:36 | Diagnostic Imaging Report ---
PROCEDURE: CT head without contrast. TECHNIQUE: Multiple contiguous axial images were obtained through the brain without the use of intravenous contrast. Auto Exposure Controls were utilized during the CT exam to meet ALARA standards for radiation dose reduction. INDICATION: Discharge from hospital earlier in the day, becoming less responsive. Now nonverbal. Subdural hematoma. CORRELATION STUDY: 05/02/2018 FINDINGS: Left hemisphere hypodense subdural hematomas again demonstrated. Some internal septations or membranes are present and isodense to the cortex. This does appear to be slightly increased in size from prior study, now with current maximal thickness of approximately 18 mm. There is some mass effect upon the cortex. However, there is very little left to right midline shift likely attributed to the generalized atrophic changes. Approximately 3 mm [id number] subfalcine herniation is present at the level of the third ventricle. 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 No definitive evidence for acute edema. Basilar cisterns maintained. Bony calvarium intact. IMPRESSION: 1. Left hemispheric hypodense subdural hematoma measuring just under 2 cm maximum thickness. This appears increased in size from prior study. Moderate mass effect upon the left cerebral hemisphere but only mild, 3 mm of [id number] mid line shift. A preliminary report was provided by [employer]. Dictated by: Dictated on workstation # [id number]
--- NOTE | 2018-05-07 07:37 | Diagnostic Imaging Report ---
INDICATION: Recent discharge from hospital, becoming less responsive. Subdural hematoma.. TECHNIQUE: Single view chest 11:41 PM. CORRELATION STUDY: 05/02/2018 FINDINGS: Patient is rotated on this study and the lung apices are largely obscured by the patient's head. Given this, lung see appearing generally clear. Heart size and vasculature stable. Calcification of the aortic arch. IMPRESSION: 1. Stable chest demonstrate no acute abnormality. Dictated by: Dictated on workstation # [id number]
== END 2018-05-07 02:25 | disposition short-term general hospital (02) ==
LOC: EDUNIT# 23:09 → ER FS 23:14
DX: R41.82 Altered mental status, unspecified (principal); I95.9 Hypotension, unspecified; E86.0 Dehydration; I62.02 Nontraumatic subacute subdural hemorrhage; I10 Essential (primary) hypertension; F03.90 Unspecified dementia, unspecified severity, without behavioral disturbance, psychotic disturbance, mood disturbance, and anxiety; Z87.820 Personal history of traumatic brain injury; Z87.448 Personal history of other diseases of urinary system
CPT/HCPCS: 36415; 51701; 70450; 71045; 80053; 81000; 83605; 85025; 85610; 85730; 87040; 93005